=== PATIENT | female | born 1980 | race Caucasian/White ===

== ENCOUNTER 2020-01-24 10:09 | Outpatient (CLI) | payer OTHER, SELFPAY ==
--- NOTE | 2020-01-24 10:37 | MR_ITS ---
NOTE: Report was unsigned for reason: Ordering provider was edited. Original Signature date and time was: 01/24/20 @2001 WS: [id number] MRI HEAD WITH CONTRAST TECHNIQUE: Sagittal T1, T2 axial, T2 axial FLAIR, axial susceptibility weighted imaging, axial diffusion weighted images, and coronal T2 images were obtained. Pre and post-T1 axial and post T1 coronal images. ADC and FSPGR images. CLINICAL INFORMATION: HEADACHES/HAND NUMNESS COMPARISON: None. FINDINGS: No evidence of restricted diffusion to suggest acute ischemia. Ventricular system and basal cisterns are patent. No suspicious intracranial signal abnormalities. Normal hastings-white differentiation. No hemosiderin on the susceptibility weighted images. Normal vascular flow voids at the skull base. Paranasal sinuses and mastoid air cells are well aerated. Temporal lobes and hippocampal formations are normal in appearance. Normal optic chiasm and pituitary infundibulum. Corpus callosum is normal in appearance. No evidence of demyelinating disease. Normal optic chiasm and pituitary infundibulum. Normal cavernous sinuses and Meckel's cave. No abnormal intracranial enhancement. Normal visualized venous sinuses. [facility] MR/MR head wo/w con [id number] IMPRESSION: 1. No evidence of restricted diffusion to suggest acute ischemia. 2. No suspicious intracranial signal abnormalities. No evidence of demyelinati ng disease. 3. Normal corpus callosum. 4. No abnormal intracranial enhancement. 5. Temporal lobes and hippocampal formations are normal in appearance. 6. No abnormal intracranial enhancement. 7. Normal optic chiasm and pituitary infundibulum.
== END 2020-01-24 10:10 | disposition home or self-care (01) ==
LOC: RADWPI 10:16
PROVIDERS: PCP Internal Medicine; Visit Provider Internal Medicine
DX: R51 Headache (principal); G89.29 Other chronic pain; R29.898 Other symptoms and signs involving the musculoskeletal system
CPT/HCPCS: 70553; A9579

== ENCOUNTER → 2020-02-01 13:40 | Outpatient (BNVA) | payer OTHER, SELFPAY | PROVIDERS: PCP Internal Medicine; Visit Provider Nurse Practitioner Family | DX: Z11.59 Encounter for screening for other viral diseases (principal) | CPT/HCPCS: 87635 ==

== ENCOUNTER → 2020-04-04 15:51 | Outpatient (BNVA) | payer OTHER, SELFPAY | PROVIDERS: PCP Internal Medicine; Visit Provider Internal Medicine | DX: J06.9 Acute upper respiratory infection, unspecified (principal); Z11.59 Encounter for screening for other viral diseases | CPT/HCPCS: 87635 ==